=== PATIENT | female | born 1935 | race Caucasian/White ===

== ENCOUNTER 2020-12-25 16:24 | Emergency (ER) | payer MEDICARE, OTHER ==
[2020-12-25 17:16] LABS: BLOOD UREA NITROGEN,BUN 23 mg/dL (7.0-18.0); CARBON DIOXIDE,CO2 27.5 mmol/L (21.0-32.0); CHLORIDE,CL 96 mmol/L (98-107); GLUCOSE RANDOM 95 mg/dL (74-106); POTASSIUM,K 3.5 mmol/L (3.5-5.1); SODIUM,NA 135 mmol/L (136-145)
--- NOTE | 2020-12-25 17:20 | EDM.PDOC ---
ED HPI GENERAL MEDICAL PROBLEM - General Chief Complaint: Neuro Symptoms/Deficits Stated Complaint: possible strock Time Seen by Provider: 12/25/20 16:39 - History of Present Illness INITIAL COMMENTS - FREE TEXT/NARRATIVE: CHIEF COMPLAINT(S): Weakness HISTORY OF PRESENT ILLNESS: This is a 85-year-old woman with a prior history of CVA in 1999 who comes to the emergency department with a chief complaint of weakness. Per daughter who is at bedside she was with another family member and they noticed that she had a left-sided facial droop and some slurred speech and they were concerned about possibility of stroke. However, the daughter states that over the last 2 weeks she has noticed that she has been weaker and that she seems to fall onto her left side. She states that she has had multiple falls but has not injured herself. She denies any head injury or loss of consciousness. She states that is her and her family taking care of her and that they have to spend time with her 24 hours a day and they are not certain if they are able to continue doing that. She states that she does walk with a walker but she still is falling. She states that the last time she had a stroke in 1999 and it all started with incoherent speech but they do not know if she had any weakness after this stroke. She states that other than this weakness and falling over the last 2 weeks she has been acting normally. She also states that they went and followed up with her primary care physician and brought up with her concern over the increased weakness. Per EMS when they arrived she had no deficits and her vitals were stable in route. REVIEW OF SYSTEMS: Constitutional: Positive for weakness. Denies fever, chills. Eyes: Denies eye pain Ears, Nose, Mouth, & Throat: Denies earache Cardiovascular: Denies chest pain Respiratory: Denies shortness of breath Gastrointestinal: Denies Nausea, vomiting, diarrhea, hematochezia. Genitourinary: Denies hematuria Skin:Denies a rash MSK: Denies joint pain Neurological: Positive for slurred speech, left facial droop Psychiatric: Denies depression PAST MEDICAL HISTORY: As per history of present illness and as reviewed below otherwise noncontributory. SURGICAL HISTORY: As per history of present illness and as reviewed below otherwise noncontributory. SOCIAL HISTORY: As per history of present illness and as reviewed below otherwise noncontributory. FAMILY HISTORY: As per history of present illness and as reviewed below otherwise noncontributory. EXAMINATION OF ORGAN SYSTEMS/BODY AREAS: Constitutional: Blood pressure is 139/75, heart rate 91, respiratory rate 17 wit h an oxygen saturation 98% on room air. Temperature 36.6 General: Elderly woman who does not appear to be in acute distress. Psychiatric: Appropriate mood and affect. Eyes: No scleral icterus or conjunctival erythema pupils were 3 mm and reactive bilaterally. Extraocular movements intact. No vertical or horizontal nystagmus. No visual field defects ENMT: Moist mucous membranes. No pharyngeal erythema tongue protrudes midline. Uvula was midline. Cardiovascular: Regular, rate, and rhythm. No gallops, murmurs, or rubs. Bilateral upper extremity pulses symmetric and intact. No peripheral edema. No JVD. Respiratory: Lungs clear to auscultation bilaterally. No wheezes, rales, or rhonchi. Gastrointestinal: Soft, non-tender, non-distended. Normoactive bowel sounds Genitourinary: No suprapubic tenderness Musculoskeletal: Normal range of motion. Skin: No lesions or abrasions. Neurological: AOx4. CN grossly intact. Strength 5/5 in bilateral upper and lower extremity. Mild decreased strength in left hand. Facies were symmetrical. Sensation is intact bilaterally in upper and lower extremity. Gait appears normal. Finger to nose, heel to romero, rapid alternating movements intact. NIH of 0 MEDICAL DECISION MAKING AND COURSE IN THE ED WITH INTERPRETATION/REVIEW OF DIAGNOSTIC STUDIES: This is a 85-year-old woman with a prior history of CVA in 1999 with unknown deficits who comes to the emergency department with subacute weakness with reported left-sided weakness and facial droop and slurred speech with a last known well time of greater than 4 hours. At this time the patient does not meet stroke criteria is uncertain if this is an old deficit however this has been progressing over the last 2 weeks. This could potentially be a TIA given that her symptoms had resolved. We will obtain a work-up including CBC, CMP, TSH, T4, troponin, UA, EKG, CT head and CTA of the head and the neck. Again NIH was 0 Twelve-lead EKG interpreted by myself. Normal sinus rhythm at a rate of 67beats per minute. Normal axis. HI interval is 181ms. QRS duration is 86ms. ST segments are normal without elevations or depressions. No Q waves present. Hypertrophy not noted. No changes demonstrated from prior EKG dated 05/13/2017. Interpretation: Normal sinus rhythm Laboratory: CBC is unremarkable. Coags are within normal limits. CMP reveals hyponatremia at 135 which is at baseline, hypochloremia 96, elevation in BUN at 23 and creatinine of 1.1. There is hypomagnesemia at 1.7. Troponin is negative. TSH and T4 are normal. Urinalysis is negative. The radiological images were viewed by myself along with reading the report from the radiologist. CT head without contrast reveals 2 small regions of increased density measuring up to 5 mm present within the right frontal lobe white matter near the frontal horn. Unable to differentiate between subacute hemorrhages or intra-axial masses. CTA of the head and neck revealed no acute intracranial hemorrhage or obvious aneurysmal bleed. There is no obvious acute occlusion. 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 There is mild hypoenhancement of the right anterior division intracranial vasculature. Given the concern of the weakness and possible TIA with these 2 hyperdensities we did not provide the patient with aspirin, Plavix or TPA. I did discuss with the patient and daughter at bedside regarding transfer for further work-up. Th ey were amenable to this plan. I did contact [facility] in [place] and spoke with Dr. Rock and Dr. Smith who accepted the transfer. We will start the patient on normal saline maintenance fluids. Patient will be transferred via ALS DISPOSITION: The patient was transferred to [facility] in [place] in stable condition CONDITION: Fair PROCEDURES: None FINAL IMPRESSION(S)/DIAGNOSES: 1. Acute to subacute left-sided weakness, possible TIA 2. Acute hyperdensities in the frontal lobe, unknown etiology or cause 3. Acute kidney injury Marco Fields M.D. - Related Data Allergies Allergy/AdvReac Type Severity Reaction Status Date / Time No Known Allergies Allergy Verified 12/25/20 16:34 Home Meds: Home Meds Levothyroxine Sodium [Synthroid] 100 mcg PO DAILY 12/25/20 [History] Lisinopril/Hydrochlorothiazide [Lisinopril-Hctz 20-25 mg Tab] 1 tab PO DAILY 12/25/20 [History] Pravastatin [Pravachol] 20 mg PO DAILY 12/25/20 [History] Propranolol [Inderal] 20 mg PO DAILY 12/25/20 [History] buPROPion HCL [Bupropion HCl Sr] 150 mg PO DAILY 12/25/20 [History] Past Medical History Cardiovascular History: Reports: High Cholesterol, Hypertension Neurological History: Reports: TIA Endocrine/Metabolic History: Reports: Hypothyroidism - Past Surgical History GI Surgical History: Reports: Cholecystectomy Social & Family History - Tobacco Use Tobacco Use Status *Q: Never Tobacco User - Recreational Drug Use Recreational Drug Use: No ED ROS GENERAL - Review of Systems Review Of Systems: See Below ED EXAM, GENERAL - Physical Exam Exam: See Below Course - Vital Signs Last Recorded V/S: Last Vital Signs Temp 36.6 C 12/25/20 16:35 Pulse 76 12/25/20 19:08 Resp 17 12/25/20 16:35 BP 150/81 H 12/25/20 19:08 Pulse Ox 96 12/25/20 19:08 - Orders/Labs/Meds Orders: Active Orders 24 hr Category Date Time Status Cardiac Monitoring [RC] . DIRECTED Care 12/25/20 16:40 Active EKG Documentation Completion [RC] STAT Care 12/25/20 16:41 Active Pulse Oximetry [RC] ASDIRECTED Care 12/25/20 16:40 Active Sodium Chloride 0.9% [Normal Saline] 1,000 ml Med 12/25/20 19:15 Active IV ASDIRECTED Medication Orders Sodium Chloride (Normal Saline) 1,000 mls @ 100 mls/hr IV ASDIRECTED NANCY Labs: Laboratory Tests 12/25/20 12/25/20 12/25/20 Range/Units 16:32 16:32 16:32 WBC 8.38 (4.0-11.0) K/uL RBC 4.92 (4.30-5.90) M/uL Hgb 14.8 (12.0-16.0) g/dL Hct 43.1 (36.0-46.0) % MCV 87.6 (80.0-98.0) fL MCH 30.1 (27.0-32.0) pg MCHC 34.3 (31.0-37.0) g/dL RDW Std Deviation 42.6 (28.0-62.0) fl RDW Coeff of Narinder 13 (11.0-15.0) % Plt Count 233 (150-400) K/uL MPV 10.70 (7.40-12.00) fL Neut % (Auto) 65.5 (48.0-80.0) % Lymph % (Auto) 20.6 (16.0-40.0) % [place] % (Auto) 8.6 (0.0-15.0) % Eos % (Auto) 4.9 (0.0-7.0) % Baso % (Auto) 0.4 (0.0-1.5) % Neut # (Auto) 5.5 (1.4-5.7) K/uL Lymph # (Auto) 1.7 (0.6-2.4) K/uL [place] # (Auto) 0.7 (0.0-0.8) K/uL Eos # (Auto) 0.4 (0.0-0.7) K/uL Baso # (Auto) 0.0 (0.0-0.1) K/uL Nucleated RBC % 0.0 /100WBC Nucleated RBCs # 0 K/uL INR 1.06 Sodium 135 L (136-145) mmol/L Potassium 3.5 (3.5-5.1) mmol/L Chloride 96 L (98-107) mmol/L Carbon Dioxide 27.5 (21.0-32.0) mmol/L BUN 23 H (7.0-18.0) mg/dL Creatinine 1.1 H (0.6-1.0) mg/dL Est Cr Clr Drug Dosing 30.11 mL/min Estimated GFR (MDRD) 47.3 ml/min Glucose 95 (74-106) mg/dL Calcium 9.3 (8.5-10.1) mg/dL Magnesium 1.7 L (1.8-2.4) mg/dL Total Bilirubin 0.4 (0.2-1.0) mg/dL AST 18 (15-37) IU/L ALT 28 (14-63) IU/L Alkaline Phosphatase 79 (46-116) U/L Troponin I < 0.050 (0.000-0.056) ng/mL Total Protein 7.4 (6.4-8.2) g/dL Albumin 3.8 (3.4-5.0) g/dL Globulin 3.6 (2.6-4.0) g/dL Albumin/Globulin Ratio 1.1 (0.9-1.6) Free T4 1.02 (0.76-1.46) ng/dL TSH 3rd Generation 0.62 (0.36-3.74) uIU/mL Urine Color Urine Appearance Urine pH (5.0-8.0) Ur Specific [place] (1.001-1.035) Urine Protein (NEGATIVE) mg/dL Urine Glucose (UA) (NEGATIVE) mg/dL Urine Ketones (NEGATIVE) mg/dL Urine Occult Blood (NEGATIVE) Urine Nitrite (NEGATIVE) Urine Bilirubin (NEGATIVE) Urine Urobilinogen (<2.0) EU/dL Ur Leukocyte Esterase (NEGATIVE) 12/25/20 Range/Units 17:05 WBC (4.0-11.0) K/uL RBC (4.30-5.90) M/uL Hgb (12.0-16.0) g/dL Hct (36.0-46.0) % MCV (80.0-98.0) fL MCH (27.0-32.0) pg MCHC (31.0-37.0) g/dL RDW Std Deviation (28.0-62.0) fl RDW Coeff of Narinder (11.0-15.0) % Plt Count (150-400) K/uL MPV (7.40-12.00) fL Neut % (Auto) (48.0-80.0) % Lymph % (Auto) (16.0-40.0) % [place] % (Auto) (0.0-15.0) % Eos % (Auto) (0.0-7.0) % Baso % (Auto) (0.0-1.5) % Neut # (Auto) (1.4-5.7) K/uL Lymph # (Auto) (0.6-2.4) K/uL [place] # (Auto) (0.0-0.8) K/uL Eos # (Auto) (0.0-0.7) K/uL Baso # (Auto) (0.0-0.1) K/uL Nucleated RBC % /100WBC Nucleated RBCs # K/uL INR Sodium (136-145) mmol/L Potassium (3.5-5.1) mmol/L Chloride (98-107) mmol/L Carbon Dioxide (21.0-32.0) mmol/L BUN (7.0-18.0) mg/dL Creatinine (0.6-1.0) mg/dL Est Cr Clr Drug Dosing mL/min Estimated GFR (MDRD) ml/min Glucose (74-106) mg/dL Calcium (8.5-10.1) mg/dL Magnesium (1.8-2.4) mg/dL Total Bilirubin (0.2-1.0) mg/dL AST (15-37) IU/L ALT (14-63) IU/L Alkaline Phosphatase (46-116) U/L Troponin I (0.000-0.056) ng/mL Total Protein (6.4-8.2) g/dL Albumin (3.4-5.0) g/dL Globulin (2.6-4.0) g/dL Albumin/Globulin Ratio (0.9-1.6) Free T4 (0.76-1.46) ng/dL TSH 3rd Generation (0.36-3.74) uIU/mL Urine Color YELLOW Urine Appearance CLEAR Urine pH 6.0 (5.0-8.0) Ur Specific [place] >= 1.030 (1.001-1.035) Urine Protein NEGATIVE (NEGATIVE) mg/dL Urine Glucose (UA) NEGATIVE (NEGATIVE) mg/dL Urine Ketones NEGATIVE (NEGATIVE) mg/dL Urine Occult Blood NEGATIVE (NEGATIVE) Urine Nitrite NEGATIVE (NEGATIVE) Urine Bilirubin NEGATIVE (NEGATIVE) Urine Urobilinogen 0.2 (<2.0) EU/dL Ur Leukocyte Esterase NEGATIVE (NEGATIVE) Meds: Medications Generic Name Dose Route Start Last Admin Trade Name Freq PRN Reason Stop Dose Admin Sodium Chloride 1,000 mls @ 100 mls/hr 12/25/20 19:15 Normal Saline IV ASDIRECTED NANCY Discontinued Medications Generic Name Dose Route Start Last Admin Trade Name Freq PRN Reason Stop Dose Admin Iopamidol 100 ml 12/25/20 18:00 12/25/20 18:01 Isovue Multipack-370 (76%) IVPUSH 12/25/20 18:01 100 ml ONETIME STA Administration Departure - Departure Time of Disposition: 19:21 Disposition: DC/Tfer to Acute Hospital 02 Condition: Fair Clinical Impression: TIA (transient ischemic attack) - Discharge Information Referrals: Yudy Sifuentes MD [Primary Care Provider] - Forms: ED Department Discharge Sepsis Event Note (ED) - Evaluation Sepsis Screening Result: No Definite Risk - Focused Exam Vital Signs: Vital Signs Temp Pulse Resp BP Pulse Ox 12/25/20 19:08 76 150/81 H 96 12/25/20 17:20 67 149/73 H 97 12/25/20 16:35 36.6 C 91 17 139/75 98 - My Orders Last 24 Hours: My Active Orders 12/25/20 16:40 Cardiac Monitoring [RC] . DIRECTED Pulse Oximetry [RC] ASDIRECTED 12/25/20 16:41 EKG Documentation Completion [RC] STAT 12/25/20 19:15 Sodium Chloride 0.9% [Normal Saline] 1,000 ml IV ASDIRECTED - Assessment/Plan Last 24 Hours: My Active Orders 12/25/20 16:40 Cardiac Monitoring [RC] . DIRECTED Pulse Oximetry [RC] ASDIRECTED 12/25/20 16:41 EKG Documentation Completion [RC] STAT 12/25/20 19:15 Sodium Chloride 0.9% [Normal Saline] 1,000 ml IV ASDIRECTED
[2020-12-25] MEDS ORDERED: Iopamidol 755 MG/ML 500 ML Multipack Bottle IVPUSH STA (18:00)
--- NOTE | 2020-12-25 18:20 | CT ---
INDICATION: Weakness 2 weeks. Left sided TECHNIQUE: CT Head without i.v. contrast. COMPARISON: None FINDINGS: CSF space: Unremarkable for age. Brain: There are 2 small vague regions of increased density measuring up to 5 mm present within the right frontal lobe white matter near the frontal horn. No mass-effect or midline shift is seen. Mild diffuse cortical atrophy is noted. Moderate patchy regions of low attenuation are present in the periventricular white matter, likely due to chronic microvascular ischemic changes. Calvarium: The visualized paranasal sinuses are well aerated. The mastoid air cells are clear. The patient is status post bilateral cataract removal. The calvarium is unremarkable in appearance with no fractures identified. IMPRESSION: 1. There are 2 small vague regions of increased density measuring up to 5 mm present within the right frontal lobe white matter near the frontal horn. Assessment with MRI may be helpful to distinguish between a subacute hemorrhages or intra-axial masses. Dictated by Nadeem Luque MD @ 12/25/2020 6:17:50 PM Please note that all CT scans at this facility use dose modulation, iterative reconstruction, and/or weight-based dosing when appropriate to reduce radiation dose to as low as reasonably achievable. Dictated by: Nadeem Luque MD @ 12/25/2020 18:18:05 (Electronically Signed)
--- NOTE | 2020-12-25 18:53 | CT ---
INDICATION: Acute stroke, left-sided weakness. TECHNIQUE: High-resolution axial CT images acquired through the head and neck following rapid intravenous administration of iodinated contrast. Multiplanar MIPS of cranial and cervical vasculature performed. COMPARISON: Noncontrast head CT performed just prior. FINDINGS: There is extensive intracranial atherosclerotic disease with marked irregularity of the basilar artery, as well as anterior, middle and posterior cerebral arteries. There is no emergent large vessel occlusion. 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 There is heavily calcified plaque around the carotid siphons. There is no vascular abnormality to correlate with the small parenchymal hyperdensities in the right frontal lobe as seen on noncontrast CT. In the neck, there is atherosclerotic plaque in the proximal right ICA resulting in a near occlusion, 99 percent by NASCET criteria with reduced caliber of the entire distal vasculature indicative of flow limitation. There is also atherosclerotic plaque in the proximal left ICA resulting in a moderate stenosis, 60 percent by NASCET criteria. There is no significant cervical vertebral artery stenosis or dissection. IMPRESSION: 1. 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 2. Moderate proximal left ICA stenosis, 60 percent by NASCET criteria. 3. Extensive intracranial atherosclerotic disease as detailed above. Tyrone Ayala MD Neurointerventional Radiologist [facility] Please note that all CT scans at this facility use dose modulation, iterative reconstruction, and/or weight-based dosing when appropriate to reduce radiation dose to as low as reasonably achievable. Dictated by Tyrone Ayala MD @ Dec 26 2020 12:55AM Signed by Dr. Tyrone Ayala @ Dec 26 2020 1:08AM
[2020-12-25] MEDS ORDERED: Sodium Chloride 0.9% 1,000 ML IV SCH (19:15)
== END 2020-12-25 19:37 ==
LOC: MW.ED 16:24
DX: M62.81 Muscle weakness (generalized) (principal); N17.9 Acute kidney failure, unspecified; R94.02 Abnormal brain scan; E78.00 Pure hypercholesterolemia, unspecified; I10 Essential (primary) hypertension; E03.9 Hypothyroidism, unspecified; Z79.899 Other long term (current) drug therapy
CPT/HCPCS: 36415; 70450; 70496; 70498; 80053; 81003; 83735; 84439; 84443; 84484; 85025; 85610; 93005; 99285; J7030; Q9967; 93010; 99284

== ENCOUNTER 2021-06-11 12:56 | Emergency (ER) | payer MEDICARE, OTHER ==
--- NOTE | 2021-06-11 15:12 | EDM.PDOC ---
ED HPI GENERAL MEDICAL PROBLEM - General Chief Complaint: Skin Complaint Stated Complaint: rt leg needs to be checked Time Seen by Provider: 06/11/21 13:27 Source of Information: Reports: Patient History Limitations: Reports: No Limitations - History of Present Illness INITIAL COMMENTS - FREE TEXT/NARRATIVE: Presents with her daughter from [facility] where she resides. Nursing there noted a sore on the right lower posterior thigh. According to her daughter, the patient has had 1 previously that required lancing. She has had no fever or any other symptoms except local tenderness. She is wheelchair/bedbound. - Related Data Allergies Allergy/AdvReac Type Severity Reaction Status Date / Time No Known Allergies Allergy Verified 06/11/21 13:22 Home Meds: Home Meds Levothyroxine Sodium [Synthroid] 100 mcg PO DAILY 12/25/20 [History] Lisinopril/Hydrochlorothiazide [Lisinopril-Hctz 20-25 mg Tab] 1 tab PO DAILY 12/25/20 [History] Pravastatin [Pravachol] 20 mg PO DAILY 12/25/20 [History] Propranolol [Inderal] 20 mg PO DAILY 12/25/20 [History] buPROPion HCL [Bupropion HCl Sr] 150 mg PO DAILY 12/25/20 [History] cephALEXin [Keflex] 500 mg PO Q8H #20 cap 06/11/21 [Rx] Past Medical History Cardiovascular History: Reports: High Cholesterol, Hypertension, Other (See Below) Other Cardiovascular History: Cardiomegaly Musculoskeletal History: Reports: Other (See Below) Other Musculoskeletal History: Dysarthria., Weakness Neurological History: Reports: CVA, TIA Psychiatric History: Reports: Anxiety Endocrine/Metabolic History: Reports: Hypothyroidism - Infectious Disease History Infectious Disease History: Reports: Chicken Pox, Measles - Past Surgical History GI Surgical History: Reports: Cholecystectomy Social & Family History - Tobacco Use Tobacco Use Status *Q: Never Tobacco User - Recreational Drug Use Recreational Drug Use: No ED ROS GENERAL - Review of Systems Review Of Systems: Comprehensive ROS is negative, except as noted in HPI. ED EXAM, SKIN/RASH Exam: See Below Exam Limited By: No Limitations General Appearance: Alert, WD/WN Ears: Normal External Exam Nose: Normal Inspection Throat/Mouth: Normal Inspection Head: Atraumatic, Normocephalic Neck: Normal Inspection Respiratory/Chest: No Respiratory Distress, Lungs Clear, Normal Breath Sounds Cardiovascular: Normal Peripheral Pulses, Regular Rate, Rhythm Extremities: Other (Posterior right distal thigh 2.5 cm round blood blister with a pustule on the distal side. No surrounding erythema.) Neurological: Alert, Oriented, Normal Cognition (Baseline) Psychiatric: Normal Affect, Normal Mood Skin: Warm, Dry, Normal Color, No Rash ED SKIN PROCEDURES - I&D Site: Right posterior distal thigh Skin Prep: Providone-Iodine (Betadine) Local Anesthesia: Lidocaine: 1% Plain Local Anesthetic Volume: 5cc Area Incised With: 11 Blade Drainage: Purulent, Bloody, Small Amount Sterile Dressing: Other (Nonadherent plus Tegaderm) Course - Vital Signs Last Recorded V/S: Last Vital Signs Temp 36.1 C 06/11/21 13:18 Pulse 80 06/11/21 13:18 Resp 16 06/11/21 13:18 BP 138/64 06/11/21 13:18 Pulse Ox 98 06/11/21 13:18 - Orders/Labs/Meds Meds: Medications Discontinued Medications Generic Name Dose Route Start Last Admin Trade Name Leah PRN Reason Stop Dose Admin Lidocaine HCl 5 ml 06/11/21 14:43 06/11/21 15:01 Lidocaine 1% 5 Ml Sdv INJECT 06/11/21 14:44 5 ml ONETIME ONE Administration Departure - Departure Time of Disposition: 15:14 Disposition: Home, Self-Care 01 Condition: Good Clinical Impression: Abscess - Discharge Information Instructions: Skin Abscess Additional Instructions: The following information is given to patients seen in the emergency department who are being discharged to home. This information is to outline your options for follow-up care. We provide all patients seen in our emergency department with a follow-up referral. The need for follow-up, as well as the timing and circumstances, are variable depending upon the specifics of your emergency department visit. If you don't have a primary care physician on staff, we will provide you with a referral. We always advise you to contact your personal physician following an emergency department visit to inform them of the circumstance of the visit and for follow-up with them and/or the need for any referrals to a consulting specialist. The emergency department will also refer you to a specialist when appropriate. This referral assures that you have the opportunity for follow-up care with a specialist. All of these measure are taken in an effort to provide you with optimal care, which includes your follow-up. Under all circumstances we always encourage you to contact your private ph ysician who remains a resource for coordinating your care. When calling for follow-up care, please make the office aware that this follow-up is from your recent emergency room visit. If for any reason you are refused follow-up, please contact the [facility] Emergency Department at and asked to speak to the emergency department charge nurse. 1. The blood blister/pustule is been lanced. 2. Warm moist pack 20 minutes 3 times a day. 3. Dress with large Band-Aid as previous 4. Antibiotic, Keflex 3 times a day for next 7 days 5. See Primary provider promptly for expanding redness or constitutional symptoms Sepsis Event Note (ED) - Evaluation Sepsis Screening Result: No Definite Risk - Focused Exam Vital Signs: Vital Signs Temp Pulse Resp BP Pulse Ox 06/11/21 13:18 36.1 C 80 16 138/64 98
== END 2021-06-11 15:31 | disposition home or self-care (01) ==
LOC: MW.ED 12:56
DX: L02.415 Cutaneous abscess of right lower limb (principal); I10 Essential (primary) hypertension; E78.00 Pure hypercholesterolemia, unspecified; E03.9 Hypothyroidism, unspecified; Z79.899 Other long term (current) drug therapy
CPT/HCPCS: 10060; 99283-25

== ENCOUNTER 2023-05-19 18:31 | Emergency (ER) | payer MEDICARE, OTHER ==
[2023-05-19] MEDS ORDERED: Sodium Chloride 0.9% 1,000 ML IV ONE (18:37)
[2023-05-19] MEDS ORDERED: Ondansetron 4 MG/2 ML SDV IVPUSH ONE (18:37)
[2023-05-19] MEDS ORDERED: Pantoprazole 80 MG in Sodium Chloride 0.9% 10 ML IVPUSH ONE (18:42)
[2023-05-19 19:03] LABS: BASOPHILS PERCENT AUTO 0.3 % (0.0-1.5); EOSINOPHILS ABSOLUTE AUTO 0.3 K/uL (0.0-0.7); EOSINOPHILS PERCENT AUTO 2.3 % (0.0-7.0); HEMATOCRIT 45.6 % (36.0-46.0); HEMOGLOBIN 15.9 g/dL (12.0-16.0); LYMPHOCYTES ABSOLUTE AUTO 1.2 K/uL (0.6-2.4); LYMPHOCYTES PERCENT AUTO 10.9 % (16.0-40.0); MEAN CORPUSCULAR HEMOGLOBIN 29.2 pg (27.0-32.0); MEAN CORPUSCULAR HGB CONC 34.9 g/dL (31.0-37.0); MEAN CORPUSCULAR VOLUME 83.7 fL (80.0-98.0); MONOCYTES ABSOLUTE AUTO 0.7 K/uL (0.0-0.8); MONOCYTES PERCENT AUTO 6.4 % (0.0-15.0); NEUTROPHILS ABSOLUTE AUTO 8.8 K/uL (1.4-5.7); NEUTROPHILS PERCENT AUTO 80.1 % (48.0-80.0); NRBC ABSOLUTE 0 K/uL; PLATELET COUNT,PLT 226 K/uL (150-400); RED BLOOD CELL COUNT 5.45 M/uL (4.30-5.90); WHITE BLOOD CELL COUNT,WBC 10.95 K/uL (4.0-11.0)
[2023-05-19 19:15] LABS: INR 1.03 (0.86-1.11)
[2023-05-19 19:40] LABS: ALBUMIN 3.8 g/dL (3.4-5.0); BILIRUBIN TOTAL 0.7 mg/dL (0.2-1.0); CALCIUM 9.1 mg/dL (8.5-10.1); CARBON DIOXIDE,CO2 26.3 mmol/L (21.0-32.0); CREATININE 0.8 mg/dL (0.6-1.0); EST CRCL DRUG DOSING (CG) 38.09 mL/min; POTASSIUM,K 4.5 mmol/L (3.5-5.1); PROTEIN TOTAL,TP 7.7 g/dL (6.4-8.2)
[2023-05-19 19:45] LABS: APPEARANCE,URINE CLEAR; BILIRUBIN,URINE NEGATIVE (NEGATIVE); COLOR,URINE YELLOW; GLUCOSE,URINE NEGATIVE (NEGATIVE); KETONES,URINE 40 mg/dL (NEGATIVE); LEUKOCYTE ESTERASE,URINE NEGATIVE (NEGATIVE); NITRITE,URINE NEGATIVE (NEGATIVE); OCCULT BLOOD,URINE TRACE-INTACT (NEGATIVE); PROTEIN,URINE NEGATIVE (NEGATIVE); UROBILINOGEN,URINE 0.2 EU/dL (<2.0)
[2023-05-19 19:49] LABS: RBC,URINE 0-5 (0-2/HPF); WBC,URINE 0-2 (0-5/HPF)
[2023-05-19 19:50] LABS: AMORPHOUS SEDIMENT,URINE OCCASIONAL (NEGATIVE); BACTERIA,URINE OCCASIONAL (NEGATIVE); EPITHELIAL CELLS,URINE FEW (NONE-FEW); HYALINE CASTS,URINE FEW (0-2/LPF); MUCUS,URINE MODERATE (NONE-MOD); SQUAMOUS EPITHELIAL CELLS,UR FEW
[2023-05-19] MEDS ORDERED: Iopamidol 755 MG/ML 500 ML Multipack Bottle IVPUSH ONE (20:15)
== END 2023-05-19 22:26 | disposition home or self-care (01) ==
LOC: MW.ED 18:31
DX: K52.9 Noninfective gastroenteritis and colitis, unspecified (principal); E86.0 Dehydration; E78.00 Pure hypercholesterolemia, unspecified; E03.9 Hypothyroidism, unspecified; Z86.73 Personal history of transient ischemic attack (TIA), and cerebral infarction without residual deficits; Z79.899 Other long term (current) drug therapy
CPT/HCPCS: 36415; 71045; 74177; 80053; 81001; 83605; 83690; 83880; 85025; 85610; 86850; 86900; 86901; 93005; 96361; 96374; 96375; 99285; C9113; J2405; J3490; J7030; Q9967; 93010; 99284